=== PATIENT | male | born 1965 | race Caucasian/White ===

== ENCOUNTER 2017-10-11 19:18 | Emergency (ER) | payer OTHER ==
[~2017-10-11] VITALS: Ht 177.8 cm; Wt 105.1 kg
[2017-10-11 19:30] VITALS: BP 132/94
[2017-10-11 19:55] LABS: HEMATOCRIT 40.5 % (38.0-50.0); MCH 32.9 PG (29.0-34.0); MCHC 36.3 G/DL (30.0-36.0); MCV 90.6 FL (86-99); MEAN PLAT.VOLUME 9.7 uM^3 (9.0-12.4); PLATELET COUNT 160 K/uL (156-360); RBC DIS.WIDTH-CV 11.6 % (11.8-14.6); RBC DIS.WIDTH-SD 38.5 % (39-53); RED BLOOD COUNT 4.47 M/uL (4.00-5.50); WHITE BLOOD COUNT 8.9 K/uL (4.1-10.2)
[2017-10-11 20:03] LABS: CHLORIDE 103 mEq/L (99-109); POTASSIUM 3.9 mEq/L (3.7-5.4); SODIUM 138 mEq/L (136-147)
[2017-10-11 20:05] LABS: GLUCOSE 169 mg/dL (70-99)
[2017-10-11 20:07] LABS: ANION GAP 10 MEQ/L (2-14); TOTAL BILIRUBIN 1.9 mg/dL (0.0-1.0)
[2017-10-11 20:09] LABS: ALKALINE PHOSPHATASE 57 IU/L (3-129); GFR ESTIMATE (CALCULATED) 57 mL/min/ (58.99-99999)
[2017-10-11 20:10] LABS: UREA NITROGEN (BUN) 8 mg/dL (9-23)
[2017-10-11] MEDS ORDERED: FLOMAX0.4 MG PO (20:20)
[2017-10-11] MEDS ORDERED: CEFTIN500 MG PO (20:20)
[2017-10-11] MEDS ORDERED: ROXICODONE5 MG PO (20:20)
[2017-10-11] MEDS ORDERED: PRAVACHOL20 MG PO (20:21)
[2017-10-11] MEDS ORDERED: METFORMIN HCL500 MG PO (20:22)
[2017-10-11 20:46] LABS: ADD MIUA? NO; BILIRUBIN NEGATIVE; BLOOD NEGATIVE; COLOR YELLOW ((YELLOW)); GLUCOSE (STRIP) NEGATIVE; KETONES NEGATIVE; LEUKOCYTES NEGATIVE; NITRITE NEGATIVE; PROTEIN (STRIP) NEGATIVE; SPECIFIC GRAVITY 1.005 (1.000-1.030); UCUL ADDED? NO; UROBILINOGEN 0.2 MG/DL (0.2-1.0)
[2017-10-11] MEDS ORDERED: NAPROSYN500 MG PO (21:11)
[2017-10-11] MEDS ORDERED: ZOFRAN ODT4 MG PO (21:11)
== END 2017-10-11 21:44 | disposition home or self-care (01) ==
LOC: EME 19:18
DX: N13.2 Hydronephrosis with renal and ureteral calculous obstruction (principal); E11.9 Type 2 diabetes mellitus without complications; Z79.84 Long term (current) use of oral hypoglycemic drugs; Z90.49 Acquired absence of other specified parts of digestive tract
CPT/HCPCS: 80053; 81003; 85027; 99281; 99284